=== PATIENT | male | born 1955 | race American Indian/Alaskan Native ===

== ENCOUNTER 2019-12-30 13:08 | Emergency (ER) | payer SELFPAY ==
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
[2019-12-30 14:30] VITALS: BP 155/72
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
== END 2019-12-30 17:41 | disposition left against medical advice (07) ==
LOC: ED 13:08
DX: M54.2 Cervicalgia (principal); M54.5 Low back pain; M25.519 Pain in unspecified shoulder; Z53.21 Procedure and treatment not carried out due to patient leaving prior to being seen by health care provider
CPT/HCPCS: 72040; 72100

== ENCOUNTER 2021-09-18 08:10 | Observation (INO) | payer MEDICARE ==
--- NOTE | 2021-09-18 08:29 | Emergency Department Report ---
ED General Adult HPI - General Chief complaint: Chest Pain Stated complaint: CHEST/STOMACH PAIN Time Seen by Provider: 09/18/21 08:17 Source: patient Mode of arrival: Ambulatory Limitations: No Limitations - History of Present Illness Initial comments: Mr. Espinoza is a 66 years old male with advanced liver cirrhosis and fluid retention. Patient presented to the ER complaining of generalized body swelling especially abdomen. Patient also complaining of shortness of breath however he denied any chest pain. Patient stated that he had thoracocentesis twice in May but he never had any paracentesis before. Patient denied any fever or chills. No nausea or vomiting or diarrhea. - Related Data Allergies Allergy/AdvReac Type Severity Reaction Status Date / Time Iodinated Contrast Media AdvReac Anaphylaxis Verified 09/18/21 08:14 shellfish derived AdvReac Anaphylaxis Verified 09/18/21 08:14 ED Review of Systems ROS: Stated complaint: CHEST/STOMACH PAIN Other details as noted in HPI Comment: All other systems reviewed and negative Constitutional: denies: chills, fever Respiratory: shortness of breath, SOB with exertion, SOB at rest. denies: cough, wheezing Cardiovascular: dyspnea on exertion, orthopnea, paroxysmal nocturnal dyspnea. denies: chest pain, palpitations Gastrointestinal: abdominal pain. denies: nausea, vomiting, diarrhea, constipation, hematemesis Musculoskeletal: denies: back pain Neurological: denies: headache, weakness, numbness, paresthesias, confusion ED Past Medical Hx - Past Medical History Hx Diabetes: Yes - Social History Smoking Status: Never Smoker Substance Use Type: None ED Physical Exam - General Limitations: No Limitations General appearance: alert, in no apparent distress - Head Head exam: Present: atraumatic, normocephalic, normal inspection - Eye Eye exam: Present: normal appearance - ENT ENT exam: Present: normal exam, normal orophraynx, mucous membranes moist - Respiratory Respiratory exam: Present: decreased breath sounds. Absent: respiratory di stress, wheezes, rales, rhonchi, accessory muscle use, prolonged expiratory - Cardiovascular Cardiovascular Exam: Present: regular rate, normal rhythm, normal heart sounds - GI/Abdominal GI/Abdominal exam: Present: soft, distended, hernia, other (Ascites.). Absent: tenderness, guarding, rebound, rigid, normal bowel sounds, mass, bruit - Extremities Exam Extremities exam: Present: normal capillary refill, pedal edema - Back Exam Back exam: Present: normal inspection, full ROM. Absent: CVA tenderness (R), CVA tenderness (L) - Neurological Exam Neurological exam: Present: alert, oriented X3, CN II-XII intact - Psychiatric Psychiatric exam: Present: normal mood - Skin Skin exam: Present: warm, intact, normal color ED Course Vital Signs 09/18/21 09/18/21 09/18/21 08:12 10:33 10:38 Temperature 98.2 F Pulse Rate 88 71 Respiratory 24 20 Rate Blood Pressure 216/100 226/112 [Left] O2 Sat by Pulse 97 98 98 Oximetry ED Medical Decision Making - Lab Data Result diagrams: 09/18/21 09:09 09/18/21 09:09 - Radiology Data Radiology results: report reviewed - Medical Decision Making Mr. Espinoza is a 66 years old male with advanced liver cirrhosis and fluid retention. Patient presented to the ER complaining of generalized body swelling especially abdomen. Patient also complaining of shortness of breath however he denied any chest pain. Patient stated that he had thoracocentesis twice in May but he never had any paracentesis before. Patient denied any fever or chills. No nausea or vomiting or diarrhea. CT abdomen and pelvis and CT chest showed right pleural effusion. Patient will need paracentesis. I discussed the patient with Dr. Marie, he agreed to admit the patient to medical service for further management. Critical care attestation.: If time is entered above; I have spent that time in minutes in the direct care of this critically ill patient, excluding procedure time. ED Disposition Clinical Impression: Shortness of breath, Ascites due to alcoholic cirrhosis, Recurrent right pleural effusion Disposition: ADMITTED INPATIENT Is pt being admited?: Yes Condition: Stable
--- NOTE | 2021-09-18 08:57 | XRay Report ---
CHEST 2 VIEWS INDICATION / CLINICAL INFORMATION: Dyspnea. COMPARISON: None available. FINDINGS: SUPPORT DEVICES: None. HEART / MEDIASTINUM: No significant abnormality. LUNGS / PLEURA: There is a moderate right pleural effusion. ADDITIONAL FINDINGS: No significant additional findings. IMPRESSION: 1. Moderate right pleural effusion without additional significant abnormality Signer Name: Julian Carroll MD Signed: 09/18/2021 8:53 AM Workstation Name: [id number]
[2021-09-18 09:47] LABS: Basophils % (Auto) 0.7 % (0.0-1.8); Eosinophils # (Auto) 0.1 K/mm3 (0.0-0.4); Eosinophils % (Auto) 3.1 % (0.0-4.3); Hematocrit 35.8 % (35.5-45.6); Hemoglobin 11.5 gm/dl (11.8-15.2); Lymphocytes # (Auto) 1.3 K/mm3 (1.2-5.4); Lymphocytes % (Auto) 34.6 % (13.4-35.0); Mean Corpuscular HGB Conc 32 % (32-34); Mean Corpuscular Volume 95 fl (84-94); Monocytes # (Auto) 0.3 K/mm3 (0.0-0.8); Monocytes % (Auto) 9.3 % (0.0-7.3); Platelet Count 193 K/mm3 (140-440); Red Blood Count 3.77 M/mm3 (3.65-5.03); Red Cell Distribution Width 13.7 % (13.2-15.2)
[2021-09-18 09:56] LABS: INR 1.02 (0.87-1.13)
[2021-09-18 09:57] LABS: Partial Thromboplastin Time 29.4 Sec. (24.2-36.6)
[2021-09-18 10:05] LABS: BUN/Creatinine Ratio 17; Blood Urea Nitrogen 19 mg/dL (9-20); Calcium 8.3 mg/dL (8.4-10.2); Hemolysis Index 4
[2021-09-18 10:09] LABS: Alanine Aminotransferase 53 units/L (7-56); Albumin 2.6 g/dL (3.9-5)
[2021-09-18 10:12] LABS: Bilirubin,Direct < 0.2 mg/dL (0-0.2)
[2021-09-18 10:34] VITALS: BP 226/112
[2021-09-18 11:11] LABS: Bilirubin,Urine NEG (Negative); Blood,Urine SM (Negative); Color,Urine Yellow (Yellow); Hyaline Casts,Urine 2 /LPF; Urobilinogen,Urine < 2.0 mg/dL (<2.0)
[2021-09-18 11:12] LABS: Protein,Urine >500 mg/dL (Negative)
--- NOTE | 2021-09-18 12:03 | Cat Scan Report ---
CT of the chest, abdomen and pelvis without IV contrast INDICATION / CLINICAL INFORMATION: Chest and abdominal pain with worsening dyspnea. Pleural effusion. TECHNIQUE: CT of the chest abdomen and pelvis without IV contrast performed per routine. All CT scans at this [facility] are performed using CT dose reduction for ALARA by means of automated exposure control. COMPARISON: None available. FINDINGS: Chest: There is a large right-sided pleural effusion causing moderate compressive atelectasis of the right lower lobe. The left lung is clear. The heart size is normal and there is significant coronary artery calcification. Several shotty borderline enlarged mediastinal nodes are present. No axillary a denopathy. Abdomen and pelvis: Large volume ascites identified throughout the abdomen and pelvis. The liver is c irrhotic in appearance. The spleen is enlarged measuring 14 cm craniocaudal. The pancreas is difficul t to visualize given surrounding fluid. Both kidneys are grossly unremarkable. There is a prominent ventral abdominal hernia that contains mesentery, ascites. This hernia measures 5.7 cm in diameter. Several bowel loops are identified near the mouth of the hernia. It is difficult to exclude the possibility of collapsed bowel in this hernia. Urinary bladder is unremarkable. There is inguinal adenopathy. The abdominal aorta contains significant scattered atherosclerotic calcification. There is diffuse anasarca. Review of bone windows demonstrates mild thoracolumbar degenerative change . IMPRESSION: 1. Large right-sided pleural effusion. 2. Large volume ascites likely secondary to portal venous hypertension. 3. Cirrhotic appearing liver. Enlarged spleen with evidence of gastroesophageal varices. Overall limi michael assessment without IV contrast. 4. Prominent ventral abdominal wall hernia near the umbilicus measuring about 5.7 cm in gross diamete r. The hernia sac appears to contain mesentery and fluid however a collapsed loop of small bowel is d ifficult to exclude. No definite high-grade small bowel obstruction is identified. General surgery co nsultation of this periumbilical hernia might be useful. Signer Name: Keanu Johnson MD Signed: 09/18/2021 11:59 AM Workstation Name: [id number]
--- NOTE | 2021-09-18 16:09 | Procedure Note ---
Date of procedure: 09/18/21 Pre-op diagnosis: ascites Post-op diagnosis: same Procedure: US paracentesis Findings: large ascites Anesthesia: local Surgeon: FADY SANTOYO Estimated blood loss: none Pathology: list (120cc of cloudy yellow fluid save for labs) Specimen disposition: other (fluid saved. No labs ordered at time of par acentesis) Condition: stable Disposition: other (back to ER)
--- NOTE | 2021-09-18 16:14 | Ultrasound Report ---
ULTRASOUND-GUIDED PARACENTESIS HISTORY: Ascites. PROCEDURE: The risks (including but not limited to bleeding, infection, and bowel injury) and benefi ts were explained to the patient and informed consent was obtained. A time out procedure was perform ed. Ultrasound was used to evaluate the abdomen and locate the largest ascites fluid pocket. Once the sk in was marked, the procedure site was prepped and draped in the usual sterile fashion and lidocaine w as used for local anesthesia. A 5 Latvian centesis catheter was placed. The patient was monitored cl osely throughout the procedure, and a total of 7100 mL of cloudy yellow fluid was aspirated. 120 cc of fluid was saved for laboratory analysis if needed. No labs were ordered at the time of paracentesi s. The patient tolerated the procedure well with no complications. IMPRESSION: Successful ultrasound-guided paracentesis as described. Signer Name: Mike Chaudhary Jr, MD Signed: 09/18/2021 4:10 PM Workstation Name: [id number]
--- NOTE | 2021-09-18 20:17 | History and Physical Report ---
History of Present Illness Date of examination: 09/18/21 Date of admission: 09/18/21 13:17 Chief complaint: Increasing abdominal distention and shortness of breath for 1 week History of present illness: 66 years old male with advanced liver cirrhosis and fluid retention. Patient presented to the ER complaining of generalized body swelling especially abdomen. Patient also complaining of shortness of breath however he denied any chest pain. Patient stated that he had thoracocentesis twice in May but he never had any paracentesis before. Patient denied any fever or chills. No nausea or vomiting or diarrhea. - Past Medical History --Diabetes: Yes -Surgical history --Thoracentesis X2 - Social History --Smoking Status: Never Smoker --Substance Use Type: None -Family history --Hypertension Review of Systems ROS: Stated complaint: CHEST/STOMACH PAIN Other details as noted in HPI Comment: All other systems reviewed and negative Constitutional: denies: chills, fever Respiratory: shortness of breath, SOB with exertion, SOB at rest. denies: cough, wheezing Cardiovascular: dyspnea on exertion, orthopnea, paroxysmal nocturnal dyspnea. denies: chest pain, palpitations Gastrointestinal: abdominal pain. denies: nausea, vomiting, diarrhea, constipation, hematemesis Musculoskeletal: denies: back pain Neurological: denies: headache, weakness, numbness, paresthesias, confusion Medications and Allergies Allergies Allergy/AdvReac Type Severity Reaction Status Date / Time Iodinated Contrast Media AdvReac Anaphylaxis Verified 09/18/21 08:14 shellfish derived AdvReac Anaphylaxis Verified 09/18/21 08:14 Home Medications Medication Instructions Recorded Confirmed Last Taken Type Furosemide [Lasix] 40 mg PO QAM #30 tablet 09/18/21 Unknown Rx Spironolactone [Aldactone] 50 mg PO QDAY 30 Days #30 tablet 09/18/21 Unknown Rx Exam - Constitutional Vitals: Temp Pulse Resp BP Pulse Ox 98.2 F 71 20 226/112 98 09/18/21 08:12 09/18/21 10:33 09/18/21 10:33 09/18/21 10:33 09/18/21 10:38 General appearance: Present: mild distress, well-nourished - EENT Eyes: Present: PERRL ENT: hearing intact, clear oral mucosa - Neck Neck: Present: supple, normal ROM - Respiratory Respiratory effort: normal Respiratory: bilateral: CTA, diminished - Cardiovascular Heart rate: 78 Rhythm: regular (78) Heart Sounds: Present: S1 & S2. Absent: rub, click - Extremities Extremities: pulses symmetrical, No edema Peripheral Pulses: within normal limits - Abdominal General gastrointestinal: Present: soft, distended, normal bowel sounds Male genitourinary: Present: normal - Integumentary Integumentary: Present: clear, warm, dry - Musculoskeletal Musculoskeletal: gait normal, strength equal bilaterally - Psychiatric Psychiatric: appropriate mood/affect, intact judgment & insight - Neurologic Neurologic: CNII-XII intact, moves all extremities HEART Score - HEART Score History: Slightly suspicious Risk factors: 1-2 risk factors Troponin: Troponin T 0.019 ng/mL (0.00-0.029) 09/18/21 13:00 Troponin: < normal limit - Critical Actions Critical Actions: 0-3 pts:0.9-1.7%risk of adverse cardiac event.Candidate for discharge Results - Labs CBC & Chem 7: 09/18/21 09:09 09/18/21 09:09 Labs: Laboratory Last Values WBC 3.7 K/mm3 (4.5-11.0) L 09/18/21 09:09 RBC 3.77 M/mm3 (3.65-5.03) 09/18/21 09:09 Hgb 11.5 gm/dl (11.8-15.2) L 09/18/21 09:09 Hct 35.8 % (35.5-45.6) 09/18/21 09:09 MCV 95 fl (84-94) H 09/18/21 09:09 MCH 31 pg (28-32) 09/18/21 09:09 MCHC 32 % (32-34) 09/18/21 09:09 RDW 13.7 % (13.2-15.2) 09/18/21 09:09 Plt Count 193 K/mm3 (140-440) 09/18/21 09:09 Lymph % (Auto) 34.6 % (13.4-35.0) 09/18/21 09:09 Oliver % (Auto) 9.3 % (0.0-7.3) H 09/18/21 09:09 Eos % (Auto) 3.1 % (0.0-4.3) 09/18/21 09:09 Baso % (Auto) 0.7 % (0.0-1.8) 09/18/21 09:09 Lymph # (Auto) 1.3 K/mm3 (1.2-5.4) 09/18/21 09:09 Oliver # (Auto) 0.3 K/mm3 (0.0-0.8) 09/18/21 09:09 Eos # (Auto) 0.1 K/mm3 (0.0-0.4) 09/18/21 09:09 Baso # (Auto) 0.0 K/mm3 (0.0-0.1) 09/18/21 09:09 Seg Neutrophils % 52.3 % (40.0-70.0) 09/18/21 09:09 Seg Neutrophils # 2.0 K/mm3 (1.8-7.7) 09/18/21 09:09 PT 14.5 Sec. (12.2-14.9) 09/18/21 09:09 INR 1.02 (0.87-1.13) 09/18/21 09:09 APTT 29.4 Sec. (24.2-36.6) 09/18/21 09:09 Sodium 141 mmol/L (137-145) 09/18/21 09:09 Potassium 3.9 mmol/L (3.6-5.0) 09/18/21 09:09 Chloride 106.0 mmol/L (98-107) 09/18/21 09:09 Carbon Dioxide 26 mmol/L (22-30) 09/18/21 09:09 Anion Gap 13 mmol/L 09/18/21 09:09 BUN 19 mg/dL (9-20) 09/18/21 09:09 Creatinine 1.1 mg/dL (0.8-1.3) 09/18/21 09:09 Estimated GFR > 60 ml/min 09/18/21 09:09 BUN/Creatinine Ratio 17 % 09/18/21 09:09 Glucose 314 mg/dL (75-100) H 09/18/21 09:09 Lactic Acid 0.90 mmol/L (0.7-2.0) 09/18/21 09:09 Calcium 8.3 mg/dL (8.4-10.2) L 09/18/21 09:09 Total Bilirubin 0.40 mg/dL (0.1-1.2) 09/18/21 09:09 Direct Bilirubin < 0.2 mg/dL (0-0.2) 09/18/21 09:09 Indirect Bilirubin 0.2 mg/dL 09/18/21 09:09 AST 89 units/L (5-40) H 09/18/21 09:09 ALT 53 units/L (7-56) 09/18/21 09:09 Alkaline Phosphatase 558 units/L (35-129) H 09/18/21 09:09 Troponin T 0.019 ng/mL (0.00-0.029) 09/18/21 13:00 NT-Pro-B Natriuret Pep 441.2 pg/mL (0-900) 09/18/21 09:09 Total Protein 7.3 g/dL (6.3-8.2) 09/18/21 09:09 Albumin 2.6 g/dL (3.9-5) L 09/18/21 09:09 Albumin/Globulin Ratio 0.6 % 09/18/21 09:09 Urine Color Yellow (Yellow) 09/18/21 10:19 Urine Turbidity Clear (Clear) 09/18/21 10:19 Urine pH 6.0 (5.0-7.0) 09/18/21 10:19 Ur Specific Happy 1.017 (1.003-1.030) 09/18/21 10:19 Urine Protein >500 mg/dL (Negative) 09/18/21 10:19 Urine Glucose (UA) >=500 mg/dL (Negative) 09/18/21 10:19 Urine Ketones Neg mg/dL (Negative) 09/18/21 10:19 Urine Blood Sm (Negative) 09/18/21 10:19 Urine Nitrite Neg (Negative) 09/18/21 10:19 Urine Bilirubin Neg (Negative) 09/18/21 10:19 Urine Urobilinogen < 2.0 mg/dL (<2.0) 09/18/21 10:19 Ur Leukocyte Esterase Neg (Negative) 09/18/21 10:19 Urine WBC (Auto) 3.0 /HPF (0.0-6.0) 09/18/21 10:19 Urine RBC (Auto) 11.0 /HPF (0.0-6.0) 09/18/21 10:19 U Epithel Cells (Auto) < 1.0 /HPF (0-13.0) 09/18/21 10:19 Hyaline Casts 2 /LPF 09/18/21 10:19 Short CBC 09/18/21 Range/Units 09:09 WBC 3.7 L (4.5-11.0) K/mm3 Hgb 11.5 L (11.8-15.2) gm/dl Hct 35.8 (35.5-45.6) % Plt Count 193 (140-440) K/mm3 BMP 09/18/21 09:09 Sodium 141 Potassium 3.9 Chloride 106.0 Carbon Dioxide 26 BUN 19 Creatinine 1.1 Glucose 314 H Calcium 8.3 L Cardiac Enzymes 09/18/21 09/18/21 Range/Units 09:09 13:00 Troponin T 0.023 0.019 (0.00-0.029) ng/mL Liver Function 09/18/21 Range/Units 09:09 Total Bilirubin 0.40 (0.1-1.2) mg/dL Direct Bilirubin < 0.2 (0-0.2) mg/dL AST 89 H (5-40) units/L ALT 53 (7-56) units/L Alkaline Phosphatase 558 H (35-129) units/L Albumin 2.6 L (3.9-5) g/dL Urine 09/18/21 Range/Units 10:19 Urine Color Yellow (Yellow) Urine pH 6.0 (5.0-7.0) Ur Specific Happy 1.017 (1.003-1.030) Urine Protein >500 (Negative) mg/dL Urine Glucose (UA) >=500 (Negative) mg/dL - Imaging and Cardiology Chest x-ray: report reviewed CT scan - abdomen: report reviewed US - abdomen: report reviewed Imaging and Cardiology: 40 ultrasound-guided paracentesis 7.1 L of cloudy to yellow fluid was aspirated from the abdomen Chest x-ray Moderate right pleural effusion without additional significant abnormality CT of the chest Right-sided pleural effusion Large volume ascites likely secondary to portal venous hypertension Cirrhotic appearing liver Enlarged spleen with evidence of gastroesophageal varices Prominent abdominal wall hernia near umbilicus measuring 5.7 cm The hernia sac appears to contain mesentery and fluid No definite high-grade small bowel obstruction is identified Assessment and Plan Advance Directives: Yes (Full code) VTE prophylaxis?: Chemical Plan of care discussed with patient/family: Yes - Patient Problems (1) Ascites due to alcoholic cirrhosis Current Visit: Yes Status: Chronic Plan to address problem: Large amount of ascitic fluid was withdrawn 7.1 L withdrawn by radiology (2) Recurrent right pleural effusion Current Visit: Yes Status: Chronic Plan to address problem: Sympathetic pleural effusion Shortness of breath better after paracentesis was done (3) Portal hypertension Current Visit: Yes Status: Chronic Plan to address problem: Secondary to cirrhosis Patient to be initiated on propranolol (4) T2DM (type 2 diabetes mellitus) Current Visit: Yes Status: Chronic Qualifiers: Diabetes mellitus [employer]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
[2021-09-18] MEDS ORDERED: ONDANSETRON 4 MG/2 ML INJ IV PRN (20:48)
[2021-09-18] MEDS ORDERED: ACETAMINOPHEN 325 MG TAB PO PRN (20:48)
[2021-09-18] MEDS ORDERED: oxyCODONE /ACETAMINOPHEN 5-325MG TAB PO PRN (20:48)
--- NOTE | 2021-09-18 20:52 | Discharge Summary ---
Providers - Providers Date of Admission: 09/18/21 13:17 Date of discharge: 09/18/21 Attending physician: HAWK FRASER Primary care physician: STORE STOCKER Hospitalization Condition: Stable Hospital course: 66 years old male with advanced liver cirrhosis and fluid retention. Patient presented to the ER complaining of generalized body swelling especially abdomen. Patient also complaining of shortness of breath however he denied any chest pain. Patient stated that he had thoracocentesis twice in May but he never had any paracentesis before. Patient denied any fever or chills. No nausea or vomiting or diarrhea. Assessment and Plan Advance Directives: Yes (Full code) VTE prophylaxis?: Chemical Plan of care discussed with patient/family: Yes - Patient Problems (1) Ascites due to alcoholic cirrhosis Current Visit: Yes Status: Chronic Plan to address problem: Large amount of ascitic fluid was withdrawn 7.1 L withdrawn by radiology (2) Recurrent right pleural effusion Current Visit: Yes Status: Chronic Plan to address problem: Sympathetic pleural effusion Shortness of breath better after paracentesis was done (3) Portal hypertension Current Visit: Yes Status: Chronic Plan to address problem: Secondary to cirrhosis Patient to be initiated on propranolol (4) T2DM (type 2 diabetes mellitus) Current Visit: Yes Status: Chronic Qualifiers: 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 Right pleural effusion. Portal hypertension. 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 insulin use: unspecified halfway insulin use status (5) DVT prophylaxis Status: Acute Core Measure Documentation - Palliative Care Palliative Care/ Comfort Measures: Not Applicable - Core Measures Any of the following diagnoses?: none Exam - Constitutional Vitals: Temp Pulse Resp BP Pulse Ox 98.2 F 71 20 226/112 98 09/18/21 08:12 09/18/21 10:33 09/18/21 10:33 09/18/21 10:33 09/18/21 10:38 General appearance: Present: no acute distress, well-nourished - EENT Eyes: Present: PERRL ENT: hearing intact, clear oral mucosa - Neck Neck: Present: supple, normal ROM - Respiratory Respiratory effort: normal Respiratory: bilateral: CTA - Cardiovascular Heart rate: 78 Rhythm: regular Heart Sounds: Present: S1 & S2. Absent: rub, click - Extremities Extremities: pulses symmetrical, No edema Peripheral Pulses: within normal limits - Abdominal General gastrointestinal: Present: soft, non-tender, distended (Ascites decreased in size after paracentesis), normal bowel sounds Male genitourinary: Present: normal - Integumentary Integumentary: Present: clear, warm, dry - Musculoskeletal Musculoskeletal: gait normal, strength equal bilaterally - Psychiatric Psychiatric: appropriate mood/affect, intact judgment & insight - Neurologic Neurologic: CNII-XII intact, moves all extremities - Allied Health Allied health notes reviewed: nursing, case management Plan Activity: no restrictions Diet: low salt Follow up with: PRIMARY CARE, [Primary Care Provider] - 3-5 Days Prescriptions: Spironolactone [Aldactone] 50 mg PO QDAY 30 Days #30 tablet Furosemide [Lasix] 40 mg PO QAM #30 tablet
[2021-09-18] MEDS ORDERED: FAMOTIDINE 20 MG TAB PO SCH (22:00)
[2021-09-18] MEDS ORDERED: HEPARIN 5,000 UNIT/1 ML VIAL SUB-Q SCH (22:00)
--- NOTE | 2021-09-19 10:18 | Electrocardiograph Report ---
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
== END 2021-09-18 21:05 | disposition home or self-care (01) ==
LOC: ED 08:10 → 4A 13:17
PROVIDERS: ADMIT Internal Medicine; ATTEND Internal Medicine
DX: R06.02 Shortness of breath (principal); J90 Pleural effusion, not elsewhere classified; K70.31 Alcoholic cirrhosis of liver with ascites; F10.10 Alcohol abuse, uncomplicated; K76.6 Portal hypertension; E11.9 Type 2 diabetes mellitus without complications; Z79.899 Other long term (current) drug therapy; Z98.890 Other specified postprocedural states
CPT/HCPCS: 36415; 49083; 71046; 71250; 74176; 80048; 80076; 81001; 82140; 83036; 83880; 84484; 85025; 85610; 85730; 93005; 99285; G0378